=== PATIENT | female | born 1950 | race Caucasian/White ===

== ENCOUNTER 2018-02-25 11:41 | Day surgery (SDC) | payer OTHER ==
[2018-02-22 15:04] VITALS: BMI 25.7
[2018-02-25 14:40] VITALS: PULSE 64
[2018-02-25 15:27] VITALS: BP 113/74; TEMP 98
--- NOTE | 2018-02-25 18:06 | EKG ---
Test Reason : Blood Pressure : / mmHG Vent. Rate : 061 BPM Atrial Rate : 061 BPM P-R Int : 248 ms QRS Dur : 092 ms QT Int : 448 ms P-R-T Axes : 058 043 034 degrees QTc Int : 450 ms SINUS RHYTHM WITH 1ST DEGREE A-V BLOCK OTHERWISE NORMAL ECG WHEN COMPARED WITH ECG OF 11-AUG-2017 09:23, SINUS RHYTHM HAS REPLACED ATRIAL FIBRILLATION VENT. RATE HAS DECREASED BY 55 BPM T WAVE VARIATION Confirmed by ANJANA TORRES MD ([id number]) on 02/25/2018 6:05:56 PM Referred By: Vidal Vance Confirmed By:ANJANA TORRES MD
== END 2018-02-25 16:24 | disposition home or self-care (01) ==
LOC: JASU-ENDO 11:41
PROVIDERS: ATTEND Internal Medicine Cardiovascular Disease
PROC: 5A2204Z Restoration of Cardiac Rhythm, Single (ICD-10-PCS; principal; 2018-02-25 13:00)
DX: I48.91 Unspecified atrial fibrillation (principal)
CPT/HCPCS: 92960; 93005; 93010

== ENCOUNTER 2022-11-22 10:45 | Emergency (ER) | payer OTHER ==
[2022-11-22 11:05] VITALS: BP 170/95; RESP 16; TEMP 99.1; BMI 23.0
[2022-11-22 11:33] LABS: HEMATOCRIT 45.3 % (32.4-45.2); HEMOGLOBIN 15.2 G/dL (10.7-15.3); MCHC 33.6 g/dl (32.0-36.0); MEAN CELL VOLUME 89.1 fl (80-96); MEAN PLT VOLUME 10.4 fl (7.5-11.1); PLATELET COUNT 201.9 10^3/uL (134-434); RBC 5.08 10^6/uL (3.60-5.2); RDW 13.7 % (11.6-15.6); WHITE BLOOD COUNT 7.1 10^3/uL (4.0-10.8)
[2022-11-22 11:55] LABS: ALBUMIN 4.5 g/dl (3.4-5.0); BILIRUBIN,TOTAL 1.1 mg/dl (0.2-1); BLOOD UREA NITROGEN 23.4 mg/dl (7-18); CALCIUM 10.5 mg/dl (8.5-10.1); CREATININE 0.8 mg/dl (0.6-1.3); POTASSIUM 3.8 mmol/L (3.5-5.1); SGOT/AST 41.1 U/L (15-37); SGPT/ALT 49.1 U/L (7-52); TOT PROT 6.7 g/dl (6.4-8.2)
[2022-11-22 14:13] VITALS: PULSE 88
== END 2022-11-22 14:20 | disposition home or self-care (01) ==
LOC: FER 10:45
DX: E05.90 Thyrotoxicosis, unspecified without thyrotoxic crisis or storm (principal); E11.9 Type 2 diabetes mellitus without complications
CPT/HCPCS: 36415; 80053; 84439; 84443; 85027; 99283-25

== ENCOUNTER 2022-12-16 15:48 | Observation (INO) | payer OTHER ==
[2022-12-16 15:59] VITALS: BMI 21.2
[2022-12-16] MEDS ORDERED: LABETALOL HCL 5 MG/1 ML (100MG/20 ML VIAL) IVPUSH ONE (16:28)
[2022-12-16] MEDS ORDERED: ACETAMINOPHEN 500 MG TABLET (FP) PO ONE (17:14)
[2022-12-16 17:17] LABS: HEMATOCRIT 41.4 % (32.4-45.2); HEMOGLOBIN 14.7 G/dL (10.7-15.3); MCH 30.4 pg (25.7-33.7); MCHC 35.4 g/dl (32.0-36.0); MEAN CELL VOLUME 85.7 fl (80-96); MEAN PLT VOLUME 9.8 fl (7.5-11.1); PLATELET COUNT 264.6 10^3/uL (134-434); RBC 4.83 10^6/uL (3.60-5.2); RDW 13.5 % (11.6-15.6); WHITE BLOOD COUNT 7.3 10^3/uL (4.0-10.8)
[2022-12-16] MEDS ORDERED: ACETAMINOPHEN 500 MG TABLET (FP) ONE (17:20)
[2022-12-16 17:27] LABS: ALBUMIN 4.2 g/dl (3.4-5.0); BILIRUBIN,TOTAL 1.4 mg/dl (0.2-1); BLOOD UREA NITROGEN 22.4 mg/dl (7-18); CALCIUM 10.1 mg/dl (8.5-10.1); CREATININE 1.1 mg/dl (0.6-1.3); SGOT/AST 79.7 U/L (15-37); SGPT/ALT 164.4 U/L (7-52); TOT PROT 6.4 g/dl (6.4-8.2)
[2022-12-16 17:29] LABS: POTASSIUM 2.9 mmol/L (3.5-5.1)
[2022-12-16] MEDS ORDERED: KCL 10 MEQ IVPB 10 MEQ/100 ML INFUS.BAG IVPB SCH (17:30)
[2022-12-16 17:31] LABS: EPITHELIAL CELLS FEW /hpf; URINE MUCUS FEW
[2022-12-16] MEDS ORDERED: SODIUM CHLORIDE 1,000 ML IV STA (17:43)
[2022-12-16] MEDS ORDERED: FOLIC ACID 1 MG TABLET (FP) PO ONE (17:44)
[2022-12-16] MEDS ORDERED: THIAMINE HCL 100 MG TABLET (FP) PO ONE (17:44)
[2022-12-16] MEDS ORDERED: KCL 10 MEQ IVPB 10 MEQ/100 ML INFUS.BAG IVPB ONE (17:45)
[2022-12-16 17:46] LABS: PLATELET ESTIMATE ADEQUATE
[2022-12-16] MEDS ORDERED: POTASSIUM CHLORIDE ORAL LIQUID 20 MEQ/15 ML PO ONE (17:46)
[2022-12-16] MEDS ORDERED: POTASSIUM CHLORIDE ORAL LIQUID 20 MEQ/15 ML ONE (18:02)
[2022-12-16] MEDS: APIXABAN 5 MG TABLET PO SCH (21:07)
[2022-12-17] MEDS: APIXABAN 5 MG TABLET PO SCH (09:56)
[2022-12-17 10:40] LABS: ALBUMIN 3.5 g/dl (3.4-5.0); BILIRUBIN,TOTAL 1.4 mg/dl (0.2-1); CALCIUM 9.6 mg/dl (8.5-10.1); CREATININE 0.8 mg/dl (0.6-1.3); POTASSIUM 3.1 mmol/L (3.5-5.1); SGOT/AST 63.5 U/L (15-37); SGPT/ALT 129.8 U/L (7-52); TOT PROT 5.5 g/dl (6.4-8.2)
[2022-12-17] MEDS ORDERED: POTASSIUM CHLORIDE ORAL LIQUID 20 MEQ/15 ML PO ONE (11:33)
[2022-12-17 17:53] VITALS: BP 153/87; PULSE 93; RESP 17; TEMP 98.1
[2022-12-18] MEDS ORDERED: METHIMAZOLE 5 MG TABLET PO SCH (10:00)
== END 2022-12-17 19:00 | disposition home or self-care (01) ==
LOC: FER 15:48 → FM/S 19:14 → UNDOADMOB 19:40 → FM/S 19:40
PROVIDERS: ADMIT Internal Medicine; ATTEND Internal Medicine
PROC: 3E033GC Introduction of Other Therapeutic Substance into Peripheral Vein, Percutaneous Approach (ICD-10-PCS; principal; 2022-12-16)
DX: U07.1 COVID-19 (principal); E87.6 Hypokalemia; E86.0 Dehydration; E87.1 Hypo-osmolality and hyponatremia; E05.90 Thyrotoxicosis, unspecified without thyrotoxic crisis or storm
CPT/HCPCS: 0241U-QW; 36415; 70450-TC; 71045-TC-FY; 80053; 81003; 81015; 83735; 84484; 85027; 87086; 93005; 96361; 96365; 99285-25; G0378

== ENCOUNTER 2022-12-25 09:51 | Emergency (ER) | payer OTHER ==
[2022-12-25 09:58] VITALS: BP 163/77; PULSE 61; RESP 18; TEMP 98.9; BMI 21.2
[2022-12-25] MEDS ORDERED: LACTATED RINGERS SOLUTION 1000 ML INFUS.BAG IV ONE ×2 (10:11→10:20)
[2022-12-25 11:12] LABS: HEMATOCRIT 38.4 % (32.4-45.2); MCH 29.8 pg (25.7-33.7); MCHC 33.8 g/dl (32.0-36.0); MEAN CELL VOLUME 88.3 fl (80-96); MEAN PLT VOLUME 9.7 fl (7.5-11.1); PLATELET COUNT 186.6 10^3/uL (134-434); RBC 4.35 10^6/uL (3.60-5.2); RDW 14.2 % (11.6-15.6); WHITE BLOOD COUNT 6.1 10^3/uL (4.0-10.8)
[2022-12-25 11:47] LABS: ALBUMIN 3.9 g/dl (3.4-5.0); BILIRUBIN,TOTAL 0.9 mg/dl (0.2-1); CALCIUM 9.7 mg/dl (8.5-10.1); CREATININE 0.8 mg/dl (0.6-1.3); POTASSIUM 3.5 mmol/L (3.5-5.1); SGPT/ALT 118.6 U/L (7-52); TOT PROT 5.7 g/dl (6.4-8.2)
[2022-12-25 12:57] LABS: PLATELET ESTIMATE ADEQUATE
== END 2022-12-25 12:45 | disposition home or self-care (01) ==
LOC: FER 09:51
DX: U07.1 COVID-19 (principal); E86.0 Dehydration; R53.83 Other fatigue; E05.90 Thyrotoxicosis, unspecified without thyrotoxic crisis or storm; R19.7 Diarrhea, unspecified; R53.1 Weakness
CPT/HCPCS: 0241U-QW; 36415; 80053; 84439; 84443; 85027; 93005; 99284-25

== ENCOUNTER → 2024-01-07 | Day surgery (SDC) | payer OTHER | END | disposition home or self-care (01) | LOC: JRADIR 09:18 | PROVIDERS: ATTEND Internal Medicine Endocrinology, Diabetes & Metabolism | PROC: 0G9K3ZX Drainage of Thyroid Gland, Percutaneous Approach, Diagnostic (ICD-10-PCS; principal; 2024-01-07) | DX: E04.1 Nontoxic single thyroid nodule (principal) | CPT/HCPCS: 10005; 76942; 88173; 88305-TC ==